=== PATIENT | female | born 2000 | race American Indian/Alaskan Native ===

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

== ENCOUNTER 2022-03-04 01:13 | Emergency (ER) | payer SELFPAY ==
[2022-03-04 01:46] VITALS: BP 116/71
[2022-03-04] MEDS ORDERED: IBUPROFEN 400 MG TAB PO ONE (01:47)
== END 2022-03-04 07:15 | disposition left against medical advice (07) ==
LOC: ED 01:13
DX: R51.9 Headache, unspecified (principal); J02.9 Acute pharyngitis, unspecified; Z53.21 Procedure and treatment not carried out due to patient leaving prior to being seen by health care provider